=== PATIENT | male | born 1995 | race Caucasian/White ===

== ENCOUNTER 2019-12-02 11:36 | Emergency (ER) | payer SELFPAY ==
[2019-12-02 11:43] VITALS: BP 146/68; PULSE 75; RESP 18; TEMP 97.8
[2019-12-02] MEDS ORDERED: IBUPROFEN 600 MG TAB PO STA (11:54)
--- NOTE | 2019-12-02 12:25 | ED ---
Abdominal Pain HPI - General Chief Complaint: Abdominal Pain Stated Complaint: Hernia Time Seen by Provider: 12/02/19 11:47 Source: patient, RN notes reviewed Mode of arrival: ambulatory Limitations: no limitations - History of Present Illness Initial Comments: This a 24-year-old male presents emergency department to complaint of left testicular, left groin pain. Patient states started yesterday. His yesterday by sitting at this point. He states that he does a large amount heavy lifting but cannot recall any significant injury. His mental abdominal pain, nausea, vomiting diarrhea, constipation, dysuria or hematuria no penile discharge. He has no significant swelling of the left testicle. Patient denies any discoloration including erythema. Patient has had no prior abdominal or groin surgeries. - Related Data Previous Rx's Medication Instructions Recorded Ibuprofen [Motrin] 600 mg PO Q8HR PRN #20 tab 12/02/19 Allergies Allergy/AdvReac Type Severity Reaction Status Date / Time No Known Allergies Allergy Verified 12/02/19 11:42 Review of Systems ROS Statement: Those systems with pertinent positive or pertinent negative responses have been documented in the HPI. ROS Other: All systems not noted in ROS Statement are negative. Past Medical History Past Medical History: No Reported History History of Any Multi-Drug Resistant Organisms: None Reported Past Surgical History: No Surgical Hx Reported Past Psychological History: No Psychological Hx Reported Smoking Status: Never smoker Past Alcohol Use History: Occasional Past Drug Use History: None Reported General Exam Limitations: no limitations General appearance: alert, in no apparent distress Head exam: Present: atraumatic, normocephalic, normal inspection Eye exam: Present: normal appearance, PERRL, EOMI. Absent: scleral icterus, conjunctival injection, periorbital swelling ENT exam: Present: normal exam, normal oropharynx, mucous membranes moist Respiratory exam: Present: normal lung sounds bilaterally. Absent: respiratory distress, wheezes, rales, rhonchi, stridor Cardiovascular Exam: Present: regular rate, normal rhythm, normal heart sounds. Absent: systolic murmur, diastolic murmur, rubs, gallop, clicks GI/Abdominal exam: Present: soft, normal bowel sounds. Absent: distended, tenderness, guarding, rebound, rigid exam: Present: testicular tenderness (Moderate left testicular tenderness), circumcision, other (No lesions or sores noted). Absent: normal inspection, urethral discharge, scrotal swelling, vertical testicular lie Back exam: Absent: CVA tenderness (R), CVA tenderness (L) Neurological exam: Present: alert, oriented X3 Skin exam: Present: warm, dry, intact, normal color. Absent: rash Course Vital Signs 12/02/19 11:38 Temperature 97.8 F Pulse Rate 75 Respiratory 18 Rate Blood Pressure 146/68 O2 Sat by Pulse 98 Oximetry Medical Decision Making - Medical Decision Making Ultrasound of the left groin, testicle was performed shows evidence of possible inguinal hernia. Patient will follow-up with surgery advised to limit heavy lifting. Patiently advised the ibuprofen return for any worsening symptoms. Disposition Clinical Impression: Left inguinal hernia Disposition: HOME SELF-CARE Condition: Stable Instructions (If sedation given, give patient instructions): Inguinal Hernia (ED) Additional Instructions: Please return to the Emergency Department if symptoms worsen or any other concerns. Prescriptions: Ibuprofen [Motrin] 600 mg PO Q8HR PRN #20 tab PRN Reason: Pain Is patient prescribed a controlled substance at d/c from ED?: No Referrals: Cynthia Kim MD [Primary Care Provider] - 1-2 days Radha Alcantar MD [REFERRING] - 1-2 days Time of Disposition: 12:51
--- NOTE | 2019-12-02 12:41 | US ---
EXAMINATION TYPE: US scrotum with doppler. Grayscale and color Doppler Duplex imaging performed of fan lowe scrotum. DATE OF EXAM: 12/02/2019 COMPARISON: NONE CLINICAL HISTORY: pain, left. Patient states he lifts heavy objects at work EXAM MEASUREMENTS: TESTICLES: Right Testicle: 4.3 x 2.7 x 2.2 cm Left Testicle: 3.5 x 2.6 x 2.0 cm EPIDIDYMIS HEAD: Right Epididymis: 1.1 x 1.1 x 0.6 cm Left Epididymis: 0.8 x 0.9 x 0.6 cm Doppler performed to assess for testicular vascularity; bilateral color flow and waveforms are seen. Presence of hydroceles: small right Presence of varicoceles: no Left groin scanned. Possible inguinal hernia, valsalva performed. Left epididymis appears echogenic in appearance. Testicles show homogenous and symmetric echotexture. IMPRESSION: Correlate for possible left inguinal hernia. Unremarkable testicular ultrasound.
== END 2019-12-02 13:02 | disposition home or self-care (01) ==
LOC: EC 11:36
DX: K40.90 Unilateral inguinal hernia, without obstruction or gangrene, not specified as recurrent (principal)
CPT/HCPCS: 76870; 93975; 99284